=== PATIENT | female | born 1945 | race Caucasian/White ===

== ENCOUNTER 2016-07-03 16:53 | Outpatient (CLI) | payer MEDICARE, OTHER | END 2016-07-03 16:54 | disposition home or self-care (01) | DX: M79.605 Pain in left leg (principal) ==

== ENCOUNTER 2016-08-03 12:59 | Outpatient (CLI) | payer MEDICARE, OTHER | END 2016-08-03 13:00 | disposition home or self-care (01) | DX: M85.89 Other specified disorders of bone density and structure, multiple sites (principal) ==

== ENCOUNTER 2016-08-03 13:01 | Outpatient (CLI) | payer MEDICARE, OTHER | END 2016-08-03 13:02 | disposition home or self-care (01) | DX: Z12.31 Encounter for screening mammogram for malignant neoplasm of breast (principal) ==

== ENCOUNTER 2016-09-17 19:59 | Outpatient (CLI) | payer MEDICARE, OTHER ==
--- NOTE | 2016-09-18 08:26 | Ultrasound Report ---
EXAM: LEFT LOWER EXTREMITY VENOUS ULTRASOUND EXAM DATE: 09/17/2016 09:00 PM. CLINICAL HISTORY: Localized swelling, mass, lump, left lower leg. COMPARISON: 06/25/2016. TECHNIQUE: Real-time sonographic vascular imaging was performed by the manager marketing communication through the lower extremity utilizing both color-flow and Doppler spectral analysis. Multiple associate sales representative static yoon ges were saved for review. FINDINGS: Common Femoral Vein (CFV): Normal. CFV-GSV Junction: Normal. Profunda Femoral Vein (PFV): Normal. Femoral Vein (FV) Prox: Normal. Femoral Vein (FV) Mid: Normal. Femoral Vein (FV) Dist: Normal. Popliteal Vein: Normal. Posterior Tibial Veins: Normal. Peroneal Veins: Normal. Other: In the area of the patient's lump at the medial, proximal left calf there are 2 rounded well m arginated mixed echogenicity hypoechoic lesions with mixed cystic and solid appearance within the sub cutaneous tissues measuring 1.4 x 1.9 x 2.3 cm and just inferior to that measuring 2.5 x 1.8 x 2.5 cm . These are immediately adjacent to a vessel but no significant internal vascularity demonstrated. Th yanelis were not demonstrated previously. Thrombosed focal superficial varicosities are the primary consi deration. Hematomas also are consideration. Necrotic nodes or masses are less likely but not excluded . IMPRESSION: 1. No evidence for left lower extremity deep venous thrombosis. 2. 2 well-defined mixed echogenicity lesions with in the medial proximal left calf subcutaneous tissu es corresponding with the area of the patient's lump measure up to 2.3 and 2.5 cm. Thrombosed focal s uperficial varicosities versus hematomas are the primary considerations. Necrotic lymph nodes or mass es are considered less likely but not definitely excluded. [facility] Referring Provider Line: [phone] SITE ID: [id number]
== END 2016-09-17 20:00 | disposition home or self-care (01) ==
LOC: DI 19:59
PROVIDERS: ATTEND Family Medicine
DX: R22.42 Localized swelling, mass and lump, left lower limb (principal)

== ENCOUNTER 2018-03-10 15:43 | Outpatient (CLI) | payer MEDICARE, OTHER ==
--- NOTE | 2018-03-11 08:42 | Mammography Report ---
Reason: ANNUAL SCREENING Procedure Date: 03/10/2018 Accession Number: [id number] / [id number] Procedure: MELLISA - Screening Mammo w/Gabe CPT Code: FULL RESULT: EXAM: Screening Mammo w/Gabe DATE: 03/10/2018 4:33 PM CLINICAL HISTORY: Screening encounter. Nulliparity. TECHNIQUE: Bilateral CC and MLO views were obtained. COMPARISON: 08/03/2016 through 10/07/2009. FINDINGS: The breasts demonstrate scattered fibroglandular densities bilaterally. A left breast 1.1 cm isodense well-circumscribed 7:00 mass is identified on mammograms dating back to 2009 and does not appear enlarged, therefore typically benign. No suspicious masses, clustered microcalcifications, or regions of architectural distortion are identified. IMPRESSION: Benign findings RECOMMENDATION: Routine annual screening unless otherwise clinically indicated. BIRADS CATEGORY 2: Benign findings STANDARD QUALIFYING STATEMENTS: 1. This examination was not reviewed with the aid of Computer-Aided Detection (CAD). 2. A negative or benign imaging report should not preclude biopsy if clinically suspicious findings are present. 3. Dense breasts may obscure an underlying neoplasm. 4. This examination was reviewed with the aid of 3D breast imaging (tomosynthesis).
== END 2018-03-10 15:44 | disposition home or self-care (01) ==
LOC: DI 15:43
PROVIDERS: ATTEND Internal Medicine
DX: Z12.31 Encounter for screening mammogram for malignant neoplasm of breast (principal)
CPT/HCPCS: 77063; 77067

== ENCOUNTER 2019-08-21 09:41 | Outpatient (CLI) | payer MEDICARE, OTHER ==
--- NOTE | 2019-08-21 10:49 | XRAY Report ---
Reason: SPRAIN OF UNSPECIFIED LIGAMENT OF LEFT ANKLE Procedure Date: 08/21/2019 Accession Number: [id number] / [id number] Procedure: XR - Ankle 3 View LT CPT Code: Final Report FULL RESULT: EXAM: LEFT ANKLE RADIOGRAPHY EXAM DATE: 08/21/2019 09:55 AM. CLINICAL HISTORY: SPRAIN OF UNSPECIFIED LIGAMENT OF LEFT ANKLE. COMPARISON: None. TECHNIQUE: 4 views. FINDINGS: Bones: Displaced fracture of the lateral malleolus. Joints: Normal. No effusion. No subluxations. The ankle mortise is normally aligned. Soft Tissues: Normal. No soft tissue swelling. IMPRESSION: Displaced fracture of the lateral malleolus. [facility]
== END 2019-08-21 09:42 | disposition home or self-care (01) ==
LOC: DI 09:41
PROVIDERS: ATTEND Nurse Practitioner Family
DX: S82.62XA Displaced fracture of lateral malleolus of left fibula, initial encounter for closed fracture (principal)

== ENCOUNTER 2019-12-17 08:08 | Outpatient (CLI) | payer MEDICARE, OTHER ==
--- NOTE | 2019-12-17 12:10 | Mammography Report ---
BILATERAL DIGITAL SCREENING MAMMOGRAM 3D/2D: 12/17/2019 CLINICAL: Routine screening. Comparison exams: 03/10/18, 08/03/16, 06/05/2014. The tissue of both breasts is heterogeneously dense. This may lower the sensitivity of mammography. No significant masses, calcifications, or other findings are seen in either breast. IMPRESSION: NEGATIVE There is no mammographic evidence of malignancy. A 1 year screening mammogram is recommended. This exam was interpreted at Station ID: [id number]. NOTE: For mammograms, a report in lay terms will be sent to the patient. Approximately 15% of breast malignancies will not be visualized mammographically. In the management of a palpable breast mass, a negative mammogram must not discourage biopsy of a clinically suspicious lesion. Electronically Signed By: Homero Painter M.D. aty/:12/17/2019 10:17:22 ACR BI-RADS Category 1: Negative 3341F PARENCHYMAL PATTERN: (D) - The breast(s) demonstrate(s) heterogeneously dense fibroglandular robert matos. BI-RADS CATEGORY: (1) - 1 RECOMMENDATION: (ANNUAL) - Recommend routine annual screening mammography. [id number] 1 year screening LATERALITY: (B)
== END 2019-12-17 08:09 | disposition home or self-care (01) ==
LOC: DI 08:08
PROVIDERS: ATTEND Nurse Practitioner Family
DX: Z12.31 Encounter for screening mammogram for malignant neoplasm of breast (principal)
CPT/HCPCS: 77063; 77067

== ENCOUNTER 2019-12-17 08:09 | Outpatient (CLI) | payer MEDICARE, OTHER ==
--- NOTE | 2019-12-18 07:33 | DEXA Report ---
PROCEDURE: Dexa Spine and/or Hip INDICATIONS: AGE-RELATED OSTEOPOROSIS W/O CURRENT PATHOLOGICAL TECHNIQUE: Dual energy x-ray absorptiometry (DXA) was performed on a [employer] System. Regions measur ed are the AP Spine, femoral neck, and if needed forearm. COMPARISON: 08/03/2016. FINDINGS: Lumbar Spine: Bone Mineral Density 0.891 g/cm/cm,T score -2.4, osteopenia Left Hip: Bone Mineral Density 0.925 g/cm/cm,T score -0.7, osteopenia Left Femoral Neck: Bone Mineral Density 0.888 g/cm/cm, T score -1.1, osteopenia (T score greater or equal to -1.0: NORMAL) (T score from -1.1 to -2.4: OSTEOPENIA) (T score less than or equal to -2.5 to: OSTEOPOROSIS) Impression: Osteopenia. Bone density not significantly changed compared to 08/03/2016. Patients with diagnosis of osteoporosis or osteopenia should have regular bone mineral density assess ment. For those eligible for Medicare, routine testing is allowed once every 2 years. Testing frequ ency can be increased for patients who have rapidly progressing disease or for those who are receivin g medical therapy to restore bone mass. Reviewed by: Mary Jane Ramos MD, PhD on 12/17/2019 4:23 PM PDT Approved by: Mary Jane Ramos MD, PhD on 12/17/2019 4:23 PM PDT Station ID: [id number]
== END 2019-12-17 08:10 | disposition home or self-care (01) ==
LOC: DI 08:09
PROVIDERS: ATTEND Nurse Practitioner Family
DX: M85.89 Other specified disorders of bone density and structure, multiple sites (principal)
CPT/HCPCS: 77080

== ENCOUNTER 2022-07-25 09:34 | Outpatient (CLI) | payer MEDICARE, OTHER ==
--- NOTE | 2022-07-26 10:48 | Mammography Report ---
BILATERAL DIGITAL SCREENING MAMMOGRAM 3D/2D WITH EXAGGERATED CC: 07/25/2022 CLINICAL: Routine screening. Comparison is made to exam dated: [facility] Other mammogr ams dated 03/10/2018, 08/03/2016, 06/05/2014 Both breasts are heterogeneously dense, which may obscure small masses (category c / 51-75% glandular tissue). There is a possible developing 0.6 cm oval equal density asymmetry in the right breast posterior dept h lateral region seen on the craniocaudal view only. No other significant masses, calcifications, or other findings are seen in either breast. IMPRESSION: INCOMPLETE: NEEDS ADDITIONAL IMAGING EVALUATION The possible developing 0.6 cm oval equal density asymmetry in the right breast is indeterminate. Ad ditional views with possible ultrasound are recommended. Based on the Tyrer Cuzick model (a risk assessment model) the patients lifetime risk is 6.2% and her 10 year risk is 5.6%. According to the ACR, ACS, and NCCN guidelines, an annual breast MRI exam eneida g with mammogram is recommended if the patients lifetime risk is 20% or greater. This exam was interpreted at Station ID: [id number]. NOTE: For mammograms, a report in lay terms will be sent to the patient. Approximately 15% of breast malignancies will not be visualized mammographically. In the management of a palpable breast mass, a negative mammogram must not discourage biopsy of a clinically suspicious lesion. Electronically Signed By: Homero Painter M.D. aty/:07/25/2022 13:29:10 letter sent: No_Letter ACR BI-RADS Category 0: Incomplete 3340F PARENCHYMAL PATTERN: (D) - The breast(s) demonstrate(s) heterogeneously dense fibroglandular parenchy ma. BI-RADS CATEGORY: (0) - 0 Mammo and [place] [id number] Immediate follow-up LATERALITY: (R)
== END 2022-07-25 09:35 | disposition home or self-care (01) ==
LOC: DI 09:34
PROVIDERS: ATTEND Nurse Practitioner Family
DX: Z12.31 Encounter for screening mammogram for malignant neoplasm of breast (principal); R92.8 Other abnormal and inconclusive findings on diagnostic imaging of breast

== ENCOUNTER 2022-07-25 09:34 | Outpatient (CLI) | payer MEDICARE, OTHER ==
--- NOTE | 2022-07-25 11:00 | DEXA Report ---
PROCEDURE: Dexa Spine and/or Hip INDICATIONS: OSTEOPOROSIS TECHNIQUE: Dual energy x-ray absorptiometry (DXA) was performed on a [email or web address] System. Regions measur ed are the AP Spine, femoral neck, and if needed forearm. COMPARISON: 12/17/2019, 08/03/2016 FINDINGS: Lumbar Spine: Bone Mineral Density 0.894 g/cm/cm,T score -2.4, osteopenia. No statistical change from prior. Left Femoral Neck: Bone Mineral Density 0.890 g/cm/cm, T score -1.1, osteopenia. No statistical change from prior. Left Hip: Bone Mineral Density 0.901 g/cm/cm,T score -0.8, normal. No statistical change from prior. (T score greater or equal to -1.0: NORMAL) (T score from -1.1 to -2.4: OSTEOPENIA) (T score less than or equal to -2.5 to: OSTEOPOROSIS) Impression: Osteopenia. No statistical change from prior. Patients with diagnosis of osteoporosis or osteopenia should have regular bone mineral density assess ment. For those eligible for Medicare, routine testing is allowed once every 2 years. Testing frequ ency can be increased for patients who have rapidly progressing disease or for those who are receivin g medical therapy to restore bone mass. Reviewed by: Arturo Khanna on 07/25/2022 10:59 AM PDT Approved by: Arturo Khanna on 07/25/2022 10:59 AM PDT Station ID: [id number]
--- NOTE | 2022-07-25 11:04 | Ultrasound Report ---
PROCEDURE: Aorta Screening INDICATIONS: FAM HIST OF AAA TECHNIQUE: Real time scanning was performed of the aorta and iliac arteries, with image documentatio n. COMPARISON: None. FINDINGS: Aorta: Proximal aortic diameter measures 2.3 x 2.5 cm. Mid-aorta measures 2.0 x 2.1 cm. Distal aor tic diameter is 1.8 x 1.9 cm. Iliac arteries: Right common iliac artery measures 1.0 x 1.0 cm. Left common iliac artery measures 1.1 x 1.2 cm. IMPRESSION: No abdominal aortic aneurysm visualized. Reviewed by: Tony Jon MD on 07/25/2022 11:02 AM PDT Approved by: Tony Jon MD on 07/25/2022 11:02 AM PDT Station ID: [id number]
== END 2022-07-25 09:35 | disposition home or self-care (01) ==
LOC: DI 09:34
PROVIDERS: ATTEND Nurse Practitioner Family
DX: Z13.6 Encounter for screening for cardiovascular disorders (principal); Z82.49 Family history of ischemic heart disease and other diseases of the circulatory system; M85.89 Other specified disorders of bone density and structure, multiple sites

== ENCOUNTER 2022-08-29 07:48 | Outpatient (CLI) | payer MEDICARE, OTHER ==
--- NOTE | 2022-08-29 12:02 | Ultrasound Report ---
LIMITED ULTRASOUND OF RIGHT BREAST: 08/29/2022 CLINICAL: Patient returns today to evaluate a focal asymmetry in the right breast. Comparison is made to exams dated: 08/29/2022 mammogram, 07/25/2022 mammogram, and 12/17/2019 mammogram - [facility]. Color flow ultrasound of the right breast 8-10 o'clock region was performed. Dunn scale images of th e real-time examination were reviewed. No significant abnormalities were seen sonographically in the right breast in the region of possible asymmetry. IMPRESSION: NEGATIVE There is no sonographic evidence of malignancy. A 1 year screening mammogram is recommended. Exam findings were conveyed to the patient. This exam was interpreted at Station ID: [id number]. Electronically Signed By: Rigo Hudson M.D. slc/:08/29/2022 09:04:19 Ultrasound BI-RADS: 1 Negative BI-RADS CATEGORY: (1) - 1 Mammogram [id number] 1 year screening LATERALITY: (B)
--- NOTE | 2022-08-29 12:02 | Mammography Report ---
UNILATERAL RIGHT DIGITAL DIAGNOSTIC MAMMOGRAM 3D/2D: 08/29/2022 CLINICAL: Patient returns today to evaluate an asymmetry in the right breast. Comparison is made to exams dated: 07/25/2022 mammogram and 12/17/2019 mammogram - [facility]. The right breast is heterogeneously dense, which may obscure small masses (category c / 51-75% glandu lar tissue). There is a possible asymmetry in the right breast posterior depth lateral region seen on the cranioca udal view only. This is less prominent. No other significant masses or calcifications are seen in the breast. IMPRESSION: INCOMPLETE: NEEDS ADDITIONAL IMAGING EVALUATION The possible asymmetry in the right breast resembles fibroglandular tissue and is indeterminate. A targeted ultrasound is recommended and will immediately follow. Based on the Tyrer Cuzick model (a risk assessment model) the patients lifetime risk is 5.7% and her 10 year risk is 5.7%. According to the ACR, ACS, and NCCN guidelines, an annual breast MRI exam eneida g with mammogram is recommended if the patients lifetime risk is 20% or greater. This exam was interpreted at Station ID: [id number]. NOTE: For mammograms, a report in lay terms will be sent to the patient. Approximately 15% of breast malignancies will not be visualized mammographically. In the management of a palpable breast mass, a negative mammogram must not discourage biopsy of a clinically suspicious lesion. Electronically Signed By: Rigo Hudson M.D. slc/:08/29/2022 09:02:36 ACR BI-RADS Category 0: Incomplete 3340F PARENCHYMAL PATTERN: (D) - The breast(s) demonstrate(s) heterogeneously dense fibroglandular robert matos. BI-RADS CATEGORY: (0) - 0 Ultrasound [id number] Immediate follow-up LATERALITY: (B)
== END 2022-08-29 07:49 | disposition home or self-care (01) ==
LOC: DI 07:48
PROVIDERS: ATTEND Nurse Practitioner Family
DX: R92.8 Other abnormal and inconclusive findings on diagnostic imaging of breast (principal)

== ENCOUNTER 2022-10-18 10:27 | Outpatient (CLI) | payer MEDICARE, OTHER | END 2022-10-18 10:28 | disposition home or self-care (01) | LOC: DI 10:27 | PROVIDERS: ATTEND Nurse Practitioner Family | DX: R01.1 Cardiac murmur, unspecified (principal); R00.1 Bradycardia, unspecified | CPT/HCPCS: 93306 ==

== ENCOUNTER 2022-10-30 10:39 | Outpatient (CLI) | payer MEDICARE, OTHER ==
--- NOTE | 2022-10-30 10:40 | CARDIAC PROCEDURE NOTE ---
Stress Test Report Service Date: 10/30/22 Service Time: 11:00 Ordering Provider: Lizette Elizabeth ARNP Indication for Test: Assess progressive exertional dyspnea and intermittent chest discomfort. Significant Medical History: Chey reports being quite healthy throughout her adult life and is not prescribed any regular medication(s). In 2018 she began a new dietary probiotic supplement, in hopes of obtaining a purported general health benefit, but this unfortunately resulted in her experiencing severe diarrhea and intermittent left lower quadrant pain that were quite disabling. She continued taking the supplement for several months until finally stopping them after about 9 months, in 2019. It has taken almost 3 years for her GI health to gradually return to normal; she states her bowel habits have only been normal again for the past 2 months. It is in this setting that she began to experience progressive shortness of breath with physical activities approximately 5 to 6 months ago that has waxed and waned, with possibly less severity in the past several weeks. She has also experienced intermittent lower chest pressure with eating, which she believes may be related to her GI syndrome. She denies exertional chest discomfort, rest dyspnea and lower extremity edema and she mentions that bending over to attend to her dog can be a major cause of dyspnea as well. She reports a chronically slow heart rate and wonders whether her heart rhythm is erratic at times. She underwent a diagnostic echocardiogram at [facility] a few weeks ago to initiate evaluation of her dyspnea, which was rather normal. Chamber sizes and systolic function were normal and there was no significant valve disease. The echo report does not address the diastology findings, which upon review today do appear to be somewhat abnormal. She is referred for an ETT today to further assess her functional capacity and for an ischemic response. Cardiac Risk Factors: Positive for family history of coronary artery disease in both parents and elevated cholesterol but no history of hypertension or diabetes. She has a remote history of heavy cigarette smoking for about 12 years but quit several decades ago. Type of Stress Test: ETT with Echocardiography Procedure: -Exercise Treadmill Test- After signing informed consent, the patient performed treadmill exercise using a Donte protocol. The patient exercised for 7 minutes 12 seconds and achieved a peak heart rate of 156 (107 percent predicted maximum heart rate for age), and an estimated workload of 8.9 METS. The test was terminated due to fatigue/shortness of breath. Resting heart rate: 63 Peak heart rate: 156 Normal response to exercise. Resting BP: 142/75 Peak BP: 206/74 Borderline elevated resting systolic BP wtih normal response of systolic and diastolic BP to exercise. Rhythm during exercise: Sinus rhythm throughout with 2 PVCs noted. Symptoms: Early in exercise stage 1 she reported mild throat fullness and lower midsternal chest pressure/discomfort, but these fully resolved by the end of stage 1 and did not recur. She became gradually dyspneic with exercise but the increase was not precipitous. EKG at rest showed normal sinus rhythm, generally normal otherwise but with slight (<0.5 mm) downsloping ST depression in leads III, aVF, V5 and V6. EKG at peak stress showed horizontal ST depression of >1.5 mm in leads II, III, aVF, V5 and V6, likely meeting diagnostic criteria for ischemia. However the specificity of this response is reduced due to the minor resting ST abnormalities. In Recovery HR and BP gradually decreased, but remained elevated relative to baseline at 5:00 (HR 94, BP 181/82). Echo imaging performed at rest and with stress will be reported separately. ICarl MD, was present throughout this treadmill stress study and supervised it in its entirety. Summary: 1) Exercise tolerance likely well above average for age and sex as evidenced by PAULETTE of -35%. 2) Borderline resting EKG. 3) Adequate level of exercise was achieved on this treadmill stress test. 4) Mild elevation of resting BP wth normal BP response to exercise. 5) ST depression of sufficient magnitude to meet EKG criteria for ischemia were seen at peak stress, though their specificity for ischemia predication is redu abigail due to resting ST abnormalities. 6) No imaging was ordered with this stress test. Conclusions and Recommendations: 1) The patient's exercise capacity appears intact and she did not develop early significant worsening of dyspnea. She did experience some transient chest and throat symptoms that did not seem clearly linked to ischemia. 2) The significance of her incremental exertional ST depression over the mild abnormalities seen on resting EKG is not clear, possibly representing a nonspecific, or a false positive, response. For further clarity I would recommend that she should have a stress imaging study; she has good echo windows and this could be a stress echocardiogram. 3) She raises questions regarding bradycardia and irregular heart rhythm, which for completeness should probably be evaluated with a CAM patch rhythm monitoring study for 7-14 days. 4) We discussed that it may be reasonable for her to have these 2 additional tests performed and to be provisionally scheduled for a formal cardiology evaluation to follow, by Dr. Weaver at the [facility]. If the tests are completely reassuring perhaps the formal cardiology evaluation would be less of a priority. 5) She reported a plan to have a screening colonoscopy and is scheduled with Dr Menard in a couple of months. I encouraged Chey to review her entire GI history at that time, including her eating-associated lower chest discomfort, especially if a stress imaging study yields a more conclusive negative result regarding cardiac ischemia.
== END 2022-10-30 10:40 | disposition home or self-care (01) ==
LOC: DI 10:39
PROVIDERS: ATTEND Nurse Practitioner Family
DX: R01.1 Cardiac murmur, unspecified (principal); R06.09 Other forms of dyspnea; Z82.49 Family history of ischemic heart disease and other diseases of the circulatory system; Z87.891 Personal history of nicotine dependence
CPT/HCPCS: 93017

== ENCOUNTER 2022-11-27 07:47 | Outpatient (CLI) | payer MEDICARE, OTHER ==
--- NOTE | 2022-11-27 07:59 | CARDIAC PROCEDURE NOTE ---
Stress Test Report Service Date: 11/27/22 Service Time: 08:00 Ordering Provider: Lizette Elizabeth NP Indication for Test: Assess chest discomfort in patient with recent abnormal ETT. Significant Medical History: Chey returns for a stress echocardiogram today after undergoing an ETT on 10/30/[address] depression over a slightly abnormal baseline, that raised concern for inducible ischemia. At that time she reported a long period of significant GI symptoms between 2018 and 2019 which resulted in a reduction of her exercise level and exertional tolerance. With improvement in her GI status she began to become more active and noticed progressive shortness of breath approximately 5 to 6 months ago, that has waxed and waned since. She also reported intermittent lower chest pressure, sometimes with eating and sometimes while active, that she also experienced during the ETT. In spite of these concerns she indicates feeling better overall with exercise and reports replacing a fence on her property this summer, that requires digging up old concrete posts and placing new ones, that she is completing entirely by herself! She continues to describe chronically slow heart rates, though on the ETT her response to exercise was unremarkable. After undergoing the ETT she bought a blood pressure monitor and notes that her blood pressures have been in the normal range, though she quite frequently receives an error message for "irregular heart rhythm". A diagnostic echocardiogram several weeks ago was fully normal, including normal diastology. Cardiac Risk Factors: Positive for family history of coronary artery disease in both parents as well as a personal history of hyperlipidemia, but no history of hypertension or diabetes. She has a remote history of heavy cigarette smoking for about 12 years, but quit several decades ago. Type of Stress Test: ETT with Echocardiography Procedure: -Exercise Treadmill Test- After signing informed consent, the patient underwent baseline echo imaging at rest and then performed treadmill exercise using a Donte protocol. The patient exercised for 7 minutes 51 seconds and achieved a peak heart rate of 156 (108 percent predicted maximum heart rate for age), and an estimated workload of 9.9 METS. The test was terminated due to fatigue/shortness of breath and the feeling that she was unable to keep up with the treadmill. Resting heart rate: 63 Peak heart rate: 156 Normal response to exercise. Resting BP: 133/69 Peak BP: 203/75 Normal response of systolic and abnormal increase in diastolic BPs in response to exercise. Rhythm during exercise: Sinus rhythm throughout, with rare PAC and 3 PVC in Recovery (one couplet and a single PVC). Symptoms: She experienced mild lower chest discomfort in stage I that resolved and did not recur; she denied experiencing any throat tightness/discomfort (reported late in exercise on the prior ETT). EKG at rest showed normal sinus rhythm with rare PACs, with <0.[address] depression in scattered leads, including II, III, aVF, V5 & V6. EKG at peak stress showed incremental ST depression in leads that were abnormal at baseline, up to 1.[address] abnormality decreases predictive value of stress-associated ST depression to predict a true ischemic response. In Recovery HR and BP normally decreased towards resting baseline. Echo imaging, performed at rest and with stress, will be reported separately. I, Carl Brown MD, was present throughout this treadmill stress study and supervised it in its entirety. Summary: 1) Exercise tolerance well above average for age and sex, as evidenced by PAULETTE of -47%. 2) Borderline abnormal resting EKG. 3) Adequate level of exercise was achieved on this treadmill stress test. 4) Normal BP response to exercise. 5) As before, there was incremental ST depression that alone would raise concern for ischemia. 6) Echo image interpretation reveals normal left ventricular size, wall thickness and systolic function, with appropriate hyperdynamic augmentation of all segments with exercise, indicating no evidence of prior infarct or inducible ischemia. No significant valvular abnormality or elevation of estimated pulmonary artery systolic pressure seen on screening study. See separate report for more details. Conclusions and Recommendations: 1) In spite of the concerns Chey raises regarding her exertional tolerance, she again has an exercise time well above average for age and sex with abnormal ST depression in response to exercise, but echo images that appear to show an entirely normal response. I emphasized to her the favorable prognostic implication of the echo findings and told her that she could continue with vigorous exercise, undergo invasive procedures as needed and that this aspect of her cardiovascular situation does not warrant further evaluation. 2) Given the PACs seen on her resting EKG and repeated "abnormal rhythm" warnings seen with her BP cuff I am still recommending that she undergo a screening rhythm monitor study (for example 7-14 days of "CAM patch" monitoring via our MAC) given the high frequency of atrial fibrillation and attendant clot risk seen in the 70's and beyond. 3) I told her that I would only recommend formal Cardiology evauation if rhythm monitoring reveals atrial fibrillation or if her symptoms worsen in spite of attempts to remain physically active.
== END 2022-11-27 07:48 | disposition home or self-care (01) ==
LOC: DI 07:47
PROVIDERS: ATTEND Nurse Practitioner Family
DX: R94.39 Abnormal result of other cardiovascular function study (principal); Z82.49 Family history of ischemic heart disease and other diseases of the circulatory system; E78.5 Hyperlipidemia, unspecified; Z87.891 Personal history of nicotine dependence
CPT/HCPCS: 93350

== ENCOUNTER 2023-01-14 09:58 | Day surgery (SDC) | payer MEDICARE, OTHER ==
[2023-01-14] MEDS ORDERED: LACTATED RINGERS 1,000 ML IV ONE ×2 (10:21→11:33)
[2023-01-14 10:26] VITALS: O2SAT 100
[2023-01-14] MEDS ORDERED: PROPOFOL 500 MG/50 ML 500 MG/50 ML VIAL ONE (10:48)
--- NOTE | 2023-01-14 10:49 | ANESTHESIA ---
Pre-Anesthesia VS, & Labs - Diagnosis screening exam - Procedure colonoscopy Vital Signs: Temp Pulse Resp BP Pulse Ox O2 Flow Rate 36. C L 80 12 166/91 H 100 0 01/14/23 10:22 01/14/23 10:22 01/14/23 10:22 01/14/23 10:22 01/14/23 10:22 01/14/23 10:22 Height: 5 ft 6 in Weight (kg): 66 kg Body Mass Index: 23.5 BMI Classification: Normal - NPO >8 hours - Is Patient ?: No Home Medications and Allergies Home Medications: Ambulatory Orders Acetaminophen [Tylenol] 1 tab PO PRN PRN 01/11/23 Calcium Carbonate [Calcium] 1 tab PO DAILY 01/11/23 Cholecalciferol (Vitamin D3) [Vitamin D3] 1 cap PO DAILY 01/11/23 Acetaminophen [Tylenol] 1 tab PO PRN PRN 01/11/23 Calcium Carbonate [Calcium] 1 tab PO DAILY 01/11/23 Cholecalciferol (Vitamin D3) [Vitamin D3] 1 cap PO DAILY 01/11/23 Allergies/Adverse Reactions: Allergies Allergy/AdvReac Type Severity Reaction Status Date / Time No Known Drug Allergies Allergy Verified 01/14/23 10:29 Anes History & Medical History - Anesthetic History Anesthesia Complications: reports: No previous complications - Medical History Cardiovascular: reports: None, Murmur (ECHO normal, EF 60%) Pulmonary: reports: None Gastrointestinal: reports: Chronic diarrhea Urinary: reports: Incontinence Neuro: reports: None Musculoskeletal: reports: Fatigue Endocrine/Autoimmune: reports: None Skin: reports: None Smoking Status: Never smoker Psychosocial: reports: No issues indicated History of Cancer?: Yes - Surgical History General: reports: Colonoscopy Gynecologic: reports: Tubal ligation Exam General: Alert, Oriented x3, Cooperative, No acute distress Dental: Other (broken tooth, all others in good condition) Mouth and Teeth Image: 1 - Broken tooth Mouth Openin Fingerbreadth Neck Mobility: Normal Mallampati classification: II Thyromental Distance: 4-6 cm Mental/Cognitive Status: Alert/Oriented X3, Normal for patient Plan Anesthesia Type: General Consent for Procedure(s) Verified and Reviewed: Yes Code Status: Attempt Resuscitation ASA classification: 2-Mild systemic disease Is this case an emergency?: No
[2023-01-14 12:08] VITALS: BP 107/90
--- NOTE | 2023-01-14 19:58 | ANESTHESIA POST OP EVALUATION ---
Anesthesia Post Eval - Post Anesthesia Eval Vitals: Last Vital Signs Temp 36.3 C L 01/14/23 12:00 Pulse 56 L 01/14/23 12:00 Resp 16 01/14/23 12:00 BP 107/90 H 01/14/23 12:00 Pulse Ox 100 01/14/23 12:00 O2 Flow Rate 0 01/14/23 10:22 CV Function Including HR & BP: Stable Pain Control: Satisfactory Nausea & Vomiting: Negative Mental Status: Baseline Respiratory Status: Airway Patent Hydration Status: Satisfactory Anesthesia Complications: None
== END 2023-01-14 09:59 | disposition home or self-care (01) ==
LOC: SDS 09:58
PROVIDERS: ATTEND Surgery
DX: Z12.11 Encounter for screening for malignant neoplasm of colon (principal); Z80.0 Family history of malignant neoplasm of digestive organs
CPT/HCPCS: G0105; J7120